=== PATIENT | male | born 1980 | race Caucasian/White ===

== ENCOUNTER 2020-02-29 13:46 | Emergency (ER) | payer MEDICAID, SELFPAY ==
[2020-02-29] VITALS (8 sets, daily range): BP systolic 103–148; BP diastolic 71–92; PULSE 81–115; RESP 14–25; TEMP 36.6; O2SAT 98–100; BMI 25.4
--- NOTE | 2020-02-29 13:53 | RAD_ITS ---
STUDY: X-RAY - RIGHT SHOULDER REASON FOR EXAM: Male, 39 years old. Patient fell. Pain in his right shoulder and unable to move it. Patient states has a hx of dislocating his right shoulder several times per patient. TECHNIQUE: 2 view(s) of the shoulder. COMPARISON: None. FINDINGS: Is evidence of anterior inferior dislocation of the right glenohumeral joint. Normal acromioclavicular joint. Normal acromion. Normal humeral head and visualized proximal humerus. The soft tissue structures are unremarkable. Normal visualized pulmonary apex. RAD/Shoulder min 2 Views IMPRESSION: Anterior inferior dislocation of the right glenohumeral joint. Electronically Signed: Dave Burnett, at 14:26 EDT , Service support ,
--- NOTE | 2020-02-29 13:55 | ED.DCSUM_ITS ---
History of Present Illness Chief Complaint: Upper Extremity Injury Informant: Patient Onset: Today Context: Sudden Onset Timing: Continuous Current Severity: Moderate Maximum Severity: Severe Narrative: Patient is a 39-year-old male with medical history significant for recurrent right shoulder dislocation that presents to the emergency department with right shoulder dislocation. The patient states he was walking, lost his balance, and try to catch himself on an outstretched hand. He states that he suffered dislocation about an hour ago. He states he tried at home to get it back in with wall walking and holding a gallon of milk, but it would not budge. He has had surgery on the shoulder before. He denies other injury. The patient is otherwise been in his normal state of health. Prior similar symptoms: Yes Recent Illness/Hospitalization: No Past Medical History - Allergies and Home Meds Allergies/Adverse Reactions: Allergies hydrocodone bitartrate [From Vicodin] Adverse Reaction (Verified 02/29/20 13:47) Upset Stomach naproxen Adverse Reaction (Verified 02/29/20 13:47) Upset Stomach Primary Care Physician: Anita Yancey DO [STAFF PHYSICIAN] - Prior records reviewed: Yes Past Medical History: None Surgical History: rotator cuff repair Smoking Status: Current every day smoker Review of Systems General: Denies: Chills, Fever, Sweats Eyes: Denies: Visual changes - bilaterally, Diplopia ENT: Denies: Rhinorrhea, Sore throat Cardiovascular: Denies: Chest pain, Palpitations Respiratory: Denies: Dyspnea, Cough, Dyspnea on exertion Gastrointestinal: Denies: Abdominal pain, Nausea, Vomiting, Diarrhea, Melena, Hematochezia Genitourinary: Denies: Dysuria, Hematuria, Frequency Musculoskeletal: Denies: Back pain, Extremity Pain Skin: Denies: Rash, Wounds Neurological: Denies: Headache, Weakness, Numbness Physical Exam Vital Signs/Narrative: Vital Signs Temp Pulse Resp BP Pulse Ox 02/29/20 13:48 97.8 F 115 H 14 148/71 H 99 Inital Vital Signs reviewed: Yes General: Well nourished, Well developed, No Acute Distress Head: Normocephalic, Atraumatic Eyes: Perrl, EOMI ENT: Moist mucous membranes, No rhinorrhea Neck: Supple, Nontender Cardiovascular: Regular rate, Regular rhythm, No murmurs Respiratory: No distress, CTA bilaterally, Chest nontender Abdomen: Soft, Nontender, Nondistended, Normal bowel sounds Back: Nontender, Normal Inspection Extremities: No edema, Tenderness - Tenderness over right shoulder with anterior dislocation visible. Axillary nerve preserved. 2+ pulses. Skin: Normal color, No rash Neurological: Alert, Oriented x3, Cranial nerves II-XII grossly intact, Normal Strength, Normal Sensation Psychological: Normal affect, Normal Mood Diagnostic/Tx/Re-eval Clinical Impression(s) from Imaging Studies Shoulder X-Ray 02/29/20 13:53 IMPRESSION: Anterior inferior dislocation of the right glenohumeral joint. Electronically Signed: Dave Burnett, at 14:26 EDT , Service support , - Medical Decision Making The patient presents to the emergency department with shoulder dislocation. He is neurovascularly intact he does have history of recurrent dislocation. Patient was consented for conscious sedation. X-rays were obtained which do demonstrate anterior dislocation. Using a total of 140 of propofol, the patient was sedated. Once sedation was achieved, the shoulder was easily reduced with abduction and external rotation. He was placed in a sling and swath. Repeat x- rays show good reduction. The patient was given outpatient orthopedic follow- up. He will be discharged home. Impression 1. Right shoulder dislocation 2. Conscious sedation by ED physician 3. Right shoulder reduction ED Disposition - Plan for ED Patient: Instructions: ED Dislocation Shoulder Redu Prescriptions: Oxycodone HCl/Acetaminophen [Percocet 5/325] 1 tab PO Q6H PRN PRN 2 Days #8 tab PRN Reason: Pain Prescription Printed Referrals: Anita Yancey DO [STAFF PHYSICIAN] -
[2020-02-29] MEDS: Ondansetron 4 MG/2 ML Vial IV (14:05)
[2020-02-29] MEDS: Morphine 4 MG/ML Syringe IV (14:06)
[2020-02-29] MEDS: 0.9% Normal Saline 1,000 ML 1000 ML IV (14:06)
--- NOTE | 2020-02-29 14:32 | RAD_ITS ---
STUDY: X-RAY - RIGHT SHOULDER REASON FOR EXAM: Male, 39 years old. Post reduction TECHNIQUE: 1 view(s) of the shoulder. COMPARISON: None. FINDINGS: Normal glenohumeral articulation. Normal acromioclavicular joint. Normal acromion. Normal humeral head and visualized proximal humerus. The soft tissue structures are unremarkable. Normal visualized pulmonary apex. RAD/Shoulder One View IMPRESSION: Satisfactory reduction of the right glenohumeral joint. Electronically Signed: Dave Burnett, at 14:56 EDT , Service support ,
[2020-02-29] MEDS: Propofol 200 MG/20 ML Vial IV BOLUS (14:36)
== END 2020-02-29 15:13 | disposition home or self-care (01) ==
LOC: ED 15:06
PROVIDERS: Emergency Provider Emergency Medicine
DX: M24.411 Recurrent dislocation, right shoulder (principal); Z88.6 Allergy status to analgesic agent; Z88.5 Allergy status to narcotic agent; F17.200 Nicotine dependence, unspecified, uncomplicated
CPT/HCPCS: 23650; 73020; 73030; 96361; 96374; 96375; 99285; A4216; J2405

== ENCOUNTER 2020-03-24 08:31 | Emergency (ER) | payer MEDICAID, SELFPAY ==
[2020-02-29 13:48] VITALS: BMI 25.4
[2020-03-24] VITALS (7 sets, daily range): BP systolic 145–183; BP diastolic 81–149; PULSE 64–125; RESP 16–32; TEMP 36.3; O2SAT 98–100; BMI 26.6
--- NOTE | 2020-03-24 09:00 | RAD_ITS ---
STUDY: X-RAY - RIGHT SHOULDER REASON FOR EXAM: Male, 39 years old. Dislocation this morning, pain TECHNIQUE: 2 view(s) of the shoulder. COMPARISON: None. FINDINGS: There is anterior inferior dislocation of the humeral head relative to the glenoid. There is no clearly demonstrated fracture. There is degenerative arthrosis of the acromioclavicular joint without inferior osseous spur formation. Normal acromion. Normal humeral head and visualized proximal humerus. The soft tissue structures are unremarkable. Normal visualized pulmonary apex. RAD/Shoulder min 2 Views IMPRESSION: Anterior inferior dislocation of the humeral relative to the glenoid without demonstrated fracture. Follow-up study recommended to assure anatomic alignment after reduction Electronically Signed: Saji Peck MD at 9:23 EDT , Service support ,
--- NOTE | 2020-03-24 09:02 | ED.VIS.GEN ---
History of Present Illness Chief Complaint: Upper Extremity Injury Informant: Patient Onset: Today Context: Sudden Onset Timing: Continuous Narrative: Patient is a 39-year-old male with history of recurrent right shoulder dislocation presenting with right shoulder dislocation. He states that he rolled in bed and felt his shoulder pop out. He tried techniques at home to get it back in but was unsuccessful. He came to the emergency room very shortly after for further evaluation. He denies any other complaints at this time. He denies any sensory numbness or tingling. He is post follow-up with orthopedics but states he was in senior care so he could not. He would like another orthopedic referral. No other new injuries. No other complaints at this time. Past Medical History - Allergies and Home Meds Allergies/Adverse Reactions: Allergies hydrocodone bitartrate [From Vicodin] Adverse Reaction (Verified 03/24/20 09:17) Upset Stomach naproxen Adverse Reaction (Verified 03/24/20 09:17) Upset Stomach Primary Care Physician: John Herman DO [STAFF PHYSICIAN] - Past Medical History: - - Recurrent shoulder dislocations Surgical History: rotator cuff repair Smoking Status: Current every day smoker Review of Systems General: Denies: Chills, Fever, Sweats Eyes: Denies: Visual changes - bilaterally, Diplopia ENT: Denies: Rhinorrhea, Sore throat Cardiovascular: Denies: Chest pain, Palpitations Respiratory: Denies: Dyspnea, Cough, Dyspnea on exertion Gastrointestinal: Denies: Abdominal pain, Nausea, Vomiting, Diarrhea, Melena, Hematochezia Genitourinary: Denies: Dysuria, Hematuria, Frequency Musculoskeletal: Reports: Extremity Pain - Right shoulder pain. Denies: Back pain Skin: Denies: Rash, Wounds Neurological: Denies: Headache, Weakness, Numbness Physical Exam Vital Signs/Narrative: Vital Signs Temp Pulse Resp BP Pulse Ox 03/24/20 08:32 97.4 F L 80 16 146/81 H 100 Inital Vital Signs reviewed: Yes General: Well nourished, Well developed, No Acute Distress Head: Normocephalic, Atraumatic Eyes: Perrl, EOMI ENT: Moist mucous membranes, No rhinorrhea Neck: Supple, Nontender Cardiovascular: Regular rate, Regular rhythm, No murmurs Respiratory: No distress, CTA bilaterally, Chest nontender Abdomen: Soft, Nontender, Nondistended, Normal bowel sounds Back: Nontender, Normal Inspection Extremities: No edema, - - Deformity of the right shoulder joint consistent with a dislocation. Decreased range of motion. 2+ radial pulses bilaterally. Skin: Normal color, No rash Neurological: Alert, Oriented x3, Cranial nerves II-XII grossly intact, Normal Strength, Normal Sensation Psychological: Normal affect, Normal Mood Diagnostic/Tx/Re-eval Clinical Impression(s) from Imaging Studies Shoulder X-Ray 03/24/20 09:00 IMPRESSION: Anterior inferior dislocation of the humeral relative to the glenoid without demonstrated fracture. Follow-up study recommended to assure anatomic alignment after reduction Electronically Signed: Saji Peck MD at 9:23 EDT , Service support , Shoulder X-Ray 03/24/20 10:25 IMPRESSION: Persistent anterior subluxation of the humeral head relative to the glenoid after reduction. There is no longer dislocation and there is no demonstrated fracture. Electronically Signed: Saji Peck MD at 10:44 EDT , Service support , - Medical Decision Making Patient is evaluated for recurrent shoulder dislocation. He is neurovascular intact. X-ray confirms dislocation. Procedural sedation performed with successful reduction of the shoulder. See procedure note. Patient is given Toradol for pain control emergency room. Patient does request a prescription for Percocet but do not feel comfortable prescribing this given that patient is recurrent dislocations ERs quite frequently for this. I am concerned there could be an addiction potential. Patient verbalizes agreement understand with this. He is given a prescription for Motrin 600 mg. He is given orthopedics for follow-up. Patient is counseled on signs and symptoms requiring return to the emergency room. Patient verbalizes agreement and understand this plan. Patient discharged home in stable and improved condition. Procedures Procedure(s): Right shoulder reduction. Patient sedated with a total of 20 mg of IV etomidate. He is monitored with end-tidal CO2, continuous telemetry monitoring and oximetry. Patient has dissociation but not complete sedation. 2 attempts at external rotation and abduction are unsuccessful as well as traction countertraction. Ultimately assistance from Dr. Ambriz with modified [place] amaya was successful. Remains neurovascular intact. He is placed in a sling and swath. ED Disposition - Plan for ED Patient: Disposition: Home or Assisted Living Diagnosis: Shoulder dislocation, recurrent Instructions: ED Dislocation Shoulder Redu, ED Sling and Swathe Prescriptions: Ibuprofen [Motrin] 600 mg PO Q6H PRN #20 tab PRN Reason: Pain/Inflammation Transmission Status: Received by [id number] Referrals: John Herman DO [STAFF PHYSICIAN] - Additional Instructions: Ibuprofen and/or Tylenol as needed for residual pain. Stay in the swath until he can follow-up with orthopedics. Call them today to schedule an appointment.
[2020-03-24] MEDS: Ketorolac 15 MG/ML Vial IV (09:19)
[2020-03-24] MEDS: Etomidate 20 MG/10 ML Vial 10 MG IV ×2 (10:24→10:27)
--- NOTE | 2020-03-24 10:25 | RAD_ITS ---
STUDY: X-RAY - RIGHT SHOULDER REASON FOR EXAM: Male, 39 years old. POST REDUCTION TECHNIQUE: 2 view(s) of the shoulder. COMPARISON: None. FINDINGS: There has been closed reduction of the previously noted dislocated glenohumeral joint. There still remains some anterior subluxation of the humeral head relative to the glenoid best seen on the scapular Y view. But there is no longer dislocation. Normal acromioclavicular joint. Normal acromion. Normal humeral head and visualized proximal humerus. The soft tissue structures are unremarkable. Normal visualized pulmonary apex. RAD/Shoulder min 2 Views IMPRESSION: Persistent anterior subluxation of the humeral head relative to the glenoid after reduction. There is no longer dislocation and there is no demonstrated fracture. Electronically Signed: Saji Peck MD at 10:44 EDT , Service support ,
== END 2020-03-24 11:18 | disposition home or self-care (01) ==
PROVIDERS: Emergency Provider Emergency Medicine
DX: M24.411 Recurrent dislocation, right shoulder (principal); F17.200 Nicotine dependence, unspecified, uncomplicated
CPT/HCPCS: 23650; 73030; 96374; 96375; 99284; J7030; A4216

== ENCOUNTER 2020-04-19 00:21 | Emergency (ER) | payer MEDICAID, SELFPAY ==
[2020-03-24 08:32] VITALS: BMI 26.6
[2020-04-19 00:23] VITALS: BP 147/89; PULSE 107; RESP 18; TEMP 36.9; O2SAT 97; BMI 25.8
--- NOTE | 2020-04-19 00:42 | ED.DCSUM_ITS ---
History of Present Illness Chief Complaint: Upper Extremity Injury Informant: Patient Occurred: Today - couple hrs ago Mechanism/Context: - - lifting a case of soft drink Context: Sudden Onset Timing: Continuous Quality of Pain: Aching Location: R shoulder Current Severity: Moderate Maximum Severity: Severe Worsened by: trying to move Relieved by: remaining still Associated Symptoms: Loss of Funtion - feels dislocated. Negative for: Parasthesia, Weakness Narrative: Patient states he has a longstanding history of recurrent dislocations of the right shoulder and feels like it is out again. He also states that he is unable to tolerate trying to get it back in without being knocked out and he last ate at lunchtime which was over 6 hours ago. He also admits that last time he was here for this he was referred to orthopedics but did not schedule an appointment, he is asking for a repeat referral so that he can be evaluated for this and try to get it taken care of. Denies any other injury. [id number]. - Past Medical History (1) Shoulder dislocation, recurrent Status: Chronic Past Medical History - Allergies and Home Meds Allergies/Adverse Reactions: Allergies hydrocodone bitartrate [From Vicodin] Adverse Reaction (Verified 04/19/20 00:25) Upset Stomach naproxen Adverse Reaction (Verified 04/19/20 00:25) Upset Stomach Primary Care Physician: Care Physician,No Primary [Primary Care Provider] - Surgical History: rotator cuff repair Lives: Spouse/ Significant Other Smoking Status: Current every day smoker Review of Systems General: Denies: Chills, Fever, Sweats Eyes: Denies: Visual changes - bilaterally, Diplopia ENT: Denies: Rhinorrhea, Sore throat Cardiovascular: Denies: Chest pain, Palpitations Respiratory: Denies: Dyspnea, Cough, Dyspnea on exertion Gastrointestinal: Denies: Abdominal pain, Nausea, Vomiting, Diarrhea, Melena, Hematochezia Genitourinary: Denies: Dysuria, Hematuria, Frequency Musculoskeletal: Reports: Extremity Pain. Denies: Back pain Skin: Denies: Rash, Wounds Neurological: Denies: Headache, Weakness, Numbness Physical Exam Vital Signs/Narrative: Vital Signs Temp Pulse Resp BP Pulse Ox 04/19/20 00:23 98.5 F 107 H 18 147/89 H 97 General: Well nourished, Well developed, - - No acute distress Head: Normocephalic, Atraumatic Eyes: Perrl, EOMI ENT: No Trauma, Moist Mucous Membranes Neck: Nontender, Full ROM Cardiovascular: Regular rate, Regular rhythm Respiratory: No distress, CTA bilaterally Extremeties: Deformity of the right shoulder with soft space palpable subacromial, diffuse mild tenderness, asymmetric with the left shoulder where there is no space in the subacromial area. Limited range of motion right shoulder due to pain. In neutral position. Skin: Normal color, No rash, No Trauma Neurological: Alert, Oriented x3, Cranial nerves II-XII grossly intact, Normal Strength, Normal Sensation, Normal Gait Psychological: Normal affect, Normal Mood Diagnostic/Tx/Re-eval Clinical Impression(s) from Imaging Studies Shoulder X-Ray 04/19/20 00:55 IMPRESSION: Anterior inferior right shoulder dislocation. at 0116 Reported and signed by: Carrie Donovan MD Electronically Signed: Carrie Donovan MD at 1:16 EDT Tel , Service support , - Medical Decision Making Patient presented during a busy overnight shift in which I was the only practitioner. I told him that I would be happy to give him some pain medication and prep him for conscious sedation, but because of staffing issues and volume, I asked him to prepare for a short wait but that we would get him sedate d/reduced as soon as possible. He said he understood. Less than 2 hours after his arrival, he told nursing that he was tired of waiting and that he was leaving. He already had his dose of morphine. He pulled his own IV out. He signed out AGAINST MEDICAL ADVICE as discussed to him by nursing. ED Disposition - Plan for ED Patient: Disposition: Against Medical Advice Diagnosis: Closed anterior dislocation of right shoulder, Shoulder dislocation, recurrent Referrals: Care Physician,No Primary [Primary Care Provider] -
--- NOTE | 2020-04-19 00:55 | RAD_ITS ---
HISTORY: shoulder dislocation rt side. hx of previous shoulder dislocations to the rt side. ADDITIONAL HISTORY: None provided. EXAMINATION/TECHNIQUE: XR Shoulder Min 2 Views Right Number of images including paperwork: 2 COMPARISON: 03/24/2020 FINDINGS: BONES: Contour abnormality of the superior humeral head appears similar consistent with previous Hill-Sachs deformity. JOINTS: Anterior inferior right shoulder dislocation. SOFT TISSUES: No distinct foreign body. RAD/Shoulder min 2 Views IMPRESSION: Anterior inferior right shoulder dislocation. at 0116 Reported and signed by: Carrie Donovan MD Electronically Signed: Carrie Donovan MD at 1:16 EDT Tel , Service support ,
[2020-04-19 01:12] VITALS: BP 134/83; PULSE 94; RESP 18; O2SAT 98
[2020-04-19] MEDS: Morphine 4 MG/ML Syringe IV (01:37)
[2020-04-19 02:05] VITALS: BP 141/84; PULSE 97; RESP 18; O2SAT 98
--- NOTE | 2020-04-19 02:06 | ED.RN ---
after morphine was given- pt stated he wanted to go home and not stay to have moderate sedation for rt shoulder dislocation. informed of signing AMA and pt agreeable. aware.
== END 2020-04-19 02:09 | disposition left against medical advice (07) ==
LOC: ED 00:47
PROVIDERS: Emergency Provider Emergency Medicine
DX: M24.411 Recurrent dislocation, right shoulder (principal); Z53.29 Procedure and treatment not carried out because of patient's decision for other reasons; S43.014A Anterior dislocation of right humerus, initial encounter; X50.9XXA Other and unspecified overexertion or strenuous movements or postures, initial encounter; Y93.9 Activity, unspecified; Y92.9 Unspecified place or not applicable; Y99.9 Unspecified external cause status; F17.200 Nicotine dependence, unspecified, uncomplicated
CPT/HCPCS: 73030; 96374; 96375; 99284; J7040; A4216

== ENCOUNTER 2022-12-09 16:56 | Emergency (ER) | payer MEDICAID, SELFPAY ==
[2022-12-09 17:03] VITALS: BP 139/106; PULSE 116; RESP 14; TEMP 36.2; O2SAT 100; BMI 32.3
--- NOTE | 2022-12-09 17:05 | ED.RN ---
RN TRYING TO TRIAGE PATIENT, PT KEEPS TALKING IN CIRCLES AND AVOIDING QUESTIONS. PT SHOWS RN A VIDEO ON HIS PHONE OF THE GROUND MOVING AROUND. RN STATES I AM NOT SURE WHAT I AM SUPPOSED TO SEE I CAN'T SEE YOUR FACE OR BODY. PT STATES ASK MY GIRL WHAT SHE SEES, SHE SEES WHAT I SEE. RN ASKS S/O WHAT SHE SEES AND SHE STATES NOTHING ALSO. WHILE RN IS ADDING VITALS TO TRIAGE NOTE PT WALKED OUT OF TRIAGE ROOM AND SAID HE WAS LEAVING.
== END 2022-12-09 17:06 | disposition left against medical advice (07) ==
LOC: ED 17:27
DX: Z00.00 Encounter for general adult medical examination without abnormal findings (principal)

== ENCOUNTER 2025-03-22 02:00 | Emergency (ER) | payer MEDICAID, SELFPAY ==
[2025-03-22 02:01] VITALS: BP 155/76; PULSE 69; RESP 18; TEMP 36.6; O2SAT 99; BMI 29.8
--- NOTE | 2025-03-22 03:00 | EDS_ITS ---
HPI History of Present Illness Chief Complaint: Rash Informant: patient Narrative Narrative: 44-year-old male presenting with 3 days of an extremely itchy rash mostly on his extremities. No systemic symptoms. Started a day or so after he was cutting down trees and in brush. He has been putting calamine lotion but it is not helping. PFSH PFS Home Medications ?Medication ?Instructions ?Recorded ?Last Taken ?Type prednisone 10 mg tablet 10 mg PO DAILY #58 TABLETS 0 03/22/25 Unknown Rx Allergy/AdvReac Type Severity Reaction Status Date / Time hydrocodone bitartrate (From AdvReac Upset Verified 03/22/25 02:01 Vicodin) Stomach naproxen AdvReac Upset Verified 03/22/25 02:01 Stomach Family History no significant family his Surgical History (Updated 03/22/25 @ 02:01 by Rocael Dewey) H/O shoulder surgery Social History Smoking Status: Current every day smoker tobacco type: cigarettes and e- cigarettes ROS ROS ED Constitutional Constitutional ED: Denies chills or fever(s) Eyes Eyes: Denies change in vision or diplopia ENT ENT ED: Denies rhinorrhea or sore throat Cardiovascular Cardiovascular: Denies chest pain or palpitations Respiratory/Chest Respiratory/Chest: Denies cough or dyspnea Gastrointestinal Gastrointestinal: Denies abdominal pain, diarrhea, nausea or vomiting Genitourinary Genitourinary ED: Denies dysuria or hematuria Musculoskeletal Musculoskeletal: Denies back pain or neck pain Integumentary Reports pruritus and rash; Denies abscess Neurologic Neurologic: Denies headache(s), paresthesias or weakness Psychiatric Psychiatric: Denies anxiety or suicidal thoughts EXAM Physical Exam Const Vital Signs: 03/22/25 02:01 Temperature 97.9 F Temperature Source Oral Pulse Rate 69 Respiratory Rate 18 Blood Pressure 155/76 H Blood Pressure Mean 102 Pulse Ox 99 Oxygen Delivery Method Room Air Positive well nourished and well developed General Appearance ED: well developed and NAD HEENT Reports moist mucous membranes normocephalic and atraumatic Eyes PERRL and EOMs intact bilaterally Neck full ROM and supple Resp normal respiratory effort Extremity General Extremety ED: Negative for edema or tenderness General Extremity: Negative for edema Neuro oriented x3, CN's II-XII intact bilaterally and no sensory deficits noted Sensorium / Orientation: awake and alert Motor Exam: strength 5/5 throughout Skin Skin Narrative: Patches of vesicles some in linear distributions in all 4 extremities. It is worst on the upper extremities, the volar left wrist on the volar right wrist but they are also weeping vesicular patches on the volar proximal right forearm and medial/volar upper arm. No lymphangitis. No tenderness. No bullae. No petechiae. MDM MDM MDM Narrative Medical decision making narrative: Consistent with possibly poison milady versus poison oak. Will start patient on prednisone and prescribe him a 2-week taper, he can also use topical hydrocortisone cream which he already has at home as well as calamine lotion. Discharge Plan Triage Chief Complaint: Rash ED Provider: Brennon Benitez Dx/Rx/DC Orders Clinical Impression: Rhus dermatitis Instructions: ED Poison Milady or Poison [place] Rash Prescriptions: New prednisone 10 mg tablet 10 mg PO DAILY Qty: 58 0RF Rx Instructions: 6 po qd x 4 days, 4 po qd x 4 days, 2 po qd x 3 days, 1 po qd x 3 days Primary Care Provider: Care Physician,No Primary Referrals: Doctor,Your [Non-Staff] - (3 wks if not improved) Print Language: Citizen Of [place] Disposition Disposition: Home, Self Care
[2025-03-22 03:04] VITALS: BP 131/81; PULSE 67; RESP 16; TEMP 36.6; O2SAT 98
[2025-03-22] MEDS: predniSONE 20 MG Tablet 60 MG PO (03:04)
== END 2025-03-22 03:07 | disposition home or self-care (01) ==
PROVIDERS: Emergency Provider Emergency Medicine; Visit Provider Emergency Medicine
DX: L23.7 Allergic contact dermatitis due to plants, except food (principal); F17.210 Nicotine dependence, cigarettes, uncomplicated; F17.290 Nicotine dependence, other tobacco product, uncomplicated
CPT/HCPCS: 99282